=== PATIENT | male | born 1995 | race African-American/Black ===

== ENCOUNTER 2017-11-12 11:08 | Emergency (ER) | payer OTHER ==
[2017-11-12 11:54] LABS: KETONE, URINE AUTO RFX TRACE mg/dL (NEGATIVE); MUCUS, URINE RFX SMALL (NEGATIVE); NITRITE, URINE AUTO RFX NEGATIVE (NEGATIVE); RBC, URINE AUTO RFX 2 /HPF (0-3); SQUAM EPITHELIAL CELL UR AURFX 0 /HPF (0-6)
[2017-11-12 11:55] LABS: LEUKOCYTE ESTERASE UR AUTO RFX 1+ (NEGATIVE); WBC, URINE AUTO RFX 17 /HPF (0-3)
[2017-11-12] MEDS: cefTRIAXone SOD 1 GM VIAL (J0696) IM (12:30)
[2017-11-12] MEDS: AZITHROMYCIN 250 MG TAB PO (12:30)
[2017-11-12 13:24] LABS: CHLAMYDIA DNA AMPLIFICATION POSITIVE (NEGATIVE); GC DNA AMPLIFICATION NEGATIVE (NEGATIVE)
== END 2017-11-12 12:51 | disposition home or self-care (01) ==
LOC: M ED 11:08
DX: Z20.2 Contact with and (suspected) exposure to infections with a predominantly sexual mode of transmission (principal)
CPT/HCPCS: J0696

== ENCOUNTER 2019-01-18 13:44 | Emergency (ER) | payer OTHER ==
[~2019-01-18] VITALS: Ht 177.8 cm; Wt 82.3 kg
[2019-01-18] MEDS ORDERED: AZITHROMYCIN 250 MG TAB PO ONE (14:45)
[2019-01-18] MEDS ORDERED: LIDOCAINE 1% SDV 5 ML VIAL DILUENT ONE (14:45)
[2019-01-18] MEDS ORDERED: cefTRIAXone SOD 250 MG VIAL (J0696) IM ONE (14:45)
[2019-01-18] MEDS ORDERED: CIPR-249 PO (15:00)
[2019-01-18 15:35] VITALS: BP 133/82
[2019-01-18 15:52] LABS: CHLAMYDIA DNA AMPLIFICATION NEGATIVE (NEGATIVE); GC DNA AMPLIFICATION NEGATIVE (NEGATIVE)
== END 2019-01-18 15:41 | disposition home or self-care (01) ==
LOC: M ED 13:44
DX: Z20.2 Contact with and (suspected) exposure to infections with a predominantly sexual mode of transmission (principal); N39.0 Urinary tract infection, site not specified; N48.89 Other specified disorders of penis; Z72.0 Tobacco use
CPT/HCPCS: 81001; 87086; 87491; 87591; 96374; 99284; J0696